=== PATIENT | female | born 1965 | race Two or more races ===

== ENCOUNTER 2025-04-17 11:52 | Emergency (ER) | payer BC ==
[~2025-04-17] VITALS: Ht 160 cm; Wt 59.0 kg
[2025-04-17] MEDS ORDERED: SILVER SULFADIAZINE CREAM 25 GM TUBE ONE (12:27)
[2025-04-17] MEDS: SILVER SULFADIAZINE CREAM 25 GM TUBE TP ONE (12:36)
[2025-04-17] MEDS ORDERED: IBUP-1490 PO (13:41)
[2025-04-17] MEDS ORDERED: TDAP [DIPH/PERTUSSIS/TET] 0.5 ML VIAL IM ONE (13:45)
[2025-04-17] MEDS: TDAP [DIPH/PERTUSSIS/TET] 0.5 ML VIAL IM ONE (13:52)
[2025-04-17 14:05] VITALS: BP 118/84; TEMP 98.3; O2SAT 96
== END 2025-04-17 14:06 | disposition home or self-care (01) ==
LOC: ER 12:00
DX: T25.221A Burn of second degree of right foot, initial encounter (principal); Y92.89 Other specified places as the place of occurrence of the external cause
CPT/HCPCS: 90715